=== PATIENT | male | born 1960 | race Caucasian/White ===

== ENCOUNTER 2024-06-04 01:10 | Emergency (ER) | payer BC, SELFPAY ==
[2024-06-04 01:18] VITALS: BP 144/94
[2024-06-04] MEDS: TORADOL 30 MG IM (01:46)
[2024-06-04] MEDS: FLEXERIL 10 MG PO (01:46)
--- NOTE | 2024-06-04 01:54 | ED.MUSCINJ ---
HPI-Injury
General
Chief Complaint: Musculo-Skeletal Complaint
Source: patient and family
Exam Limitations: none
Time Seen by Provider: 06/04/24 01:24
Nursing documentation reviewed up to this point in time: agreed with
History of Present Illness-Injury
Initial Injury comments:
Pleasant 64-year-old male who presents with 3 days of left knee pain. He also reported some left calf tenderness. This pain began 3 days ago without injury. Patient has a history of chronic low back pain and states that he had an exacerbation of
said pain. Denies fever, chills, nausea or vomiting. Able to ambulate.
Musculoskeletal Injury Exam
Musculoskeletal Injury Exam
Left Knee:
Pain with Movement?: Mild
Tender to palpation?: Mild
Soft tissue swelling?: Mild
External deformity and angulation?: None
Joint effusion?: None
Contusion?: None
Hematoma-local bleeding into tissue?: None
Strain- Sprain- Tear (Connective tissue injury)?: Mild
Crepitus with movement?: No
Joint instability?: No
Malalignment/deformity?: No
Range of motion: Full
Distal skin color and temperature: normal-warm & good color
Phy Exam
General Physical Exam
General Presentation: well appearing and mild distress
General age: appears stated age
General Skin: warm and dry
General Habitus: normal
Cardiovascular Exam
Cardiovascular Exam: regular rate/rhythm
Pulmonary Exam
Pulmonary Exam: lungs clear and no respiratory distress
Neurological Exam
Neurological Exam: alert and oriented x3
Musculoskeletal Exam
Musculoskeletal Exam: full ROM and back pain
Skin Exam
Skin Exam: normal color and warm/dry
Psychiatric Exam
Psychiatric Exam: normal mood/affect
Injury Course
Orders/Labs/Results
Orders:
Orders
06/04/24 01:39
Cyclobenzaprine HCl [Flexeril] 10 mg PO NOW STA
Ketorolac [Toradol] 30 mg IM NOW STA
Knee, Left 4 or More Views [CR Knee - Left 4 Or More View*] Urgent
Comment:
Reason For Exam: pain
Periph Venous Lwr Ext Left US [US Periph Venous LOWER Ext LT] Urgent
Comment:
Reason For Exam: left calf pain
06/04/24 03:14
Crutches-Treatment ONCE
Knee Immobilizer Left-Treatmen ONCE
MDM/Problems Addressed
Differential Diagnosis Includes:
Acute on chronic low back pain, arthritis of the left knee, meniscal injury, internal derangement of knee, DVT
MDM/Problems Addressed:
64-year-old male with 3 days of left knee pain, acute on chronic low back pain
Chronic conditions affecting care:
Low back pain
*Radiology
Radiology exam reviewed: all reviewed NAD by ED Provider
*Pulse Oximetry
Patient hypoxic: no
*Critical Care Note
Total Time (30-74mins, 75-104mins- exclusive of procedures): Not Applicable
Update Note
Update Note:
06/04/2024 0315 AM: X-ray and ultrasound are both normal. Patient still having pain. Will get a Percocet and follow-up with orthopedics. Knee immobilizer crutches.
ED Attending Note
-
Portions of this chart may have been created with voice recognition software.� Occasional wrong word or��sound alike� substitutions may have occurred due to the inherent limitations of voice recognition software.
Discharge Plan
Departure
Patient Disposition: Home (Routine Discharge)
Date of Disposition: 06/04/24
Time of Disposition: 03:16
Patient with high blood pressure during this ER visit?: Yes
Condition: Good
Discharge Problem:
Acute internal derangement of left knee
Instructions: How to Use Crutches, Knee Immobilizer (DC), BLOOD PRESSURE
Prescriptions:
New
oxycodone-acetaminophen [Percocet] 5-325 mg tablet
1 tab PO Q6HPRN PRN (Reason: pain) Qty: 7 0RF
No Action
hydrocodone-acetaminophen 1 TABLET tablet
1 - 2 tab PO Q4HPRN PRN (Reason: moderate to severe pain) Qty: 10 0RF
Referrals:
Angie Yuen DO [Family Provider] -
Activity Restrictions/Additional Instructions:
It was a pleasure meeting you and taking part in your care. We hope for your continued healing and wellness.
Please read discharge instructions in their entirety. However, they are for general education and may not describe your exact diagnosis at discharge. Information on your ER visit and medical conditions were discussed with you along with appropriate
follow up information...
If indicated, please take your medications as instructed and indicated on discharge paperwork.
Please schedule a follow up appointment as directed. Call to schedule an appointment
Please return to the emergency department with ANY change in, persisting, or worsening of symptoms. If any of your symptoms do not improve, or persist, or become more severe within 6-12 hours, please return to the emergency department for further
care.
Please return to the emergency department if you develop a headache, neck pain/stiffness, fever greater than 100.4F, chest pain, shortness of breath, persistent nausea, vomiting, slurred speech, difficulty walking, numbness/tingling, weakness, signs
of infection or any other symptoms that are worrisome to you.
If you have any questions or concerns please do not hesitate to call the Hospital at or E-mail me directly at [email or web address]
Interventions
Interventions:
*Risk Screen - Suicide Last Done: 06/04/24 01:18
*General Assessment Last Done: 06/04/24 01:18
*Neglect/Abuse Screening Last Done: 06/04/24 01:18
ED- Fall Risk Assessment Last Done: 06/04/24 01:18
*ED COVID-19 Vaccine History Last Done: 06/04/24 01:18
Discharge Date and Time
Print Language: CROATIAN
[2024-06-04] MEDS: PERCOCET 5/325 1 TABLET PO (03:49)
== END 2024-06-04 04:07 | disposition home or self-care (01) ==
LOC: EMR 01:10
PROVIDERS: EMERGENCY PHYSICIAN Student in an Organized Health Care Education/Training Program; FAMILY PHYSICIAN Family Medicine
DX: M23.92 Unspecified internal derangement of left knee (principal); M79.662 Pain in left lower leg; M54.50 Low back pain, unspecified; R03.0 Elevated blood-pressure reading, without diagnosis of hypertension; M17.12 Unilateral primary osteoarthritis, left knee; G89.29 Other chronic pain; E78.5 Hyperlipidemia, unspecified
CPT/HCPCS: 99284; 29505; 96372; 73564; 93971

== ENCOUNTER → 2024-06-10 10:38 | Outpatient (REF) | payer BC, SELFPAY | LOC: RAD 10:38 | PROVIDERS: ATTENDING PHYSICIAN Nurse Practitioner Family; REFERRING PHYSICIAN Physician Assistant Surgical | DX: M25.552 Pain in left hip (principal); M54.16 Radiculopathy, lumbar region | CPT/HCPCS: 72110; 73502 ==

== ENCOUNTER 2024-06-16 05:22 | Emergency (ER) | payer BC, SELFPAY ==
[2024-06-16 05:24] VITALS: BP 144/72
[2024-06-16 05:31] VITALS: BMI 20.2
[2024-06-16 06:06] VITALS: BP 173/83
--- NOTE | 2024-06-16 06:15 | ED.GENMED ---
History of Present Illness
General
Chief Complaint: Back Pain
Source: patient
Time Seen by Provider: 06/16/24 06:01
History of Present Illness
History of Present Illness:
64-year-old male presents to the emergency room complaining of pain in his left leg. Pain begins at the left hip and radiates down towards his foot. Pain is unrelenting. Patient was evaluated by orthopedics and his primary care doctor recently.
He was started on a Medrol Dosepak which has not helped. He was prescribed Percocet which has not helped. No bowel or bladder dysfunction. Patient was unable to get any sleep last night due to the pain.
Phy Exam
Physical Exam
Physical Exam:
General: Awake, Alert, Oriented X3. No acute distress.
Vitals: unremarkable
Head: Atraumatic
Eyes: Pupils equal, EOMI
Throat: Airway intact, no exudates
Neck: Trachea midline
Lungs: Clear and equal b/l
Heart: Regular rate, no murmurs
Abd: Soft, Nontender, No pulsatile mass
Back: No midline tenderness
Neuro: Nonfocal
Skin: Warm, dry, no rash
Extremities: pulses equal b/l, no edema
Course
Orders/Labs/Results
Orders:
Orders
06/16/24 06:14
Gabapentin [Neurontin] 100 mg PO NOW STA
HYDROmorphone [Dilaudid] 2 mg IM NOW STA
Vital Signs
Initial and Last Documented VS:
Initial Vital Signs
Temp Pulse Resp BP Pulse Ox
97.8 F 82 26 144/72 100
06/16/24 05:24 06/16/24 05:24 06/16/24 05:24 06/16/24 05:24 06/16/24 05:24
Last Documented Vital Signs
Temp Pulse Resp BP Pulse Ox
97.8 F 84 26 162/73 97
06/16/24 05:24 06/16/24 06:06 06/16/24 05:24 06/16/24 07:56 06/16/24 07:56
MDM/Problems Addressed
Differential Diagnosis Includes:
muscle spasm, radiculopathy, compression fx
MDM/Problems Addressed:
Patient has pain left leg rating down to the foot. No evidence of. He feels better after analgesia. He is in the midst of workup and has good follow-up scheduled tomorrow with orthopedics. Patient stable for discharge home we will start him on
gabapentin as well.
*Pulse Oximetry
Patient hypoxic: no
*Critical Care Note
Total Time (30-74mins, 75-104mins- exclusive of procedures): Not Applicable
ED Attending Note
-
Portions of this chart may have been created with voice recognition software.� Occasional wrong word or��sound alike� substitutions may have occurred due to the inherent limitations of voice recognition software.
Discharge Plan
Departure
Patient Disposition: Home (Routine Discharge)
Date of Disposition: 06/16/24
Time of Disposition: 07:37
Patient with high blood pressure during this ER visit?: Yes
Condition: Good
Discharge Problem:
Lumbar radiculopathy
Instructions: Sciatica (DC)
Prescriptions:
New
gabapentin 100 mg capsule
100 mg PO TID Qty: 60 0RF
Rx Instructions:
Take 1 pill three times/day for 3 days, then 2 pills three times/day for 3 days then 3 pills three times/day
No Action
atorvastatin 20 mg tablet
1 tab PO 1XD
Referrals:
Angie Yuen DO [Family Provider] -
Activity Restrictions/Additional Instructions:
Follow up with ortho as scheduled.
Interventions
Interventions:
*Risk Screen - Suicide Last Done: 06/16/24 05:24
*General Assessment Last Done: 06/16/24 05:31
*Neglect/Abuse Screening Last Done: 06/16/24 05:24
*Nursing Disposition Last Done: 06/16/24 07:56
ED-Musculoskeletal Assessment Last Done: 06/16/24 05:31
Discharge Date and Time
Discharge Date/Time: 06/16/24 07:56
Print Language: SWEDISH
[2024-06-16] MEDS: DILAUDID 2 MG IM (06:36)
[2024-06-16] MEDS: NEURONTIN 100 MG PO (06:38)
[2024-06-16 07:56] VITALS: BP 162/73
== END 2024-06-16 07:56 | disposition home or self-care (01) ==
LOC: EMR 05:22
PROVIDERS: EMERGENCY PHYSICIAN Emergency Medicine; FAMILY PHYSICIAN Family Medicine
DX: M54.16 Radiculopathy, lumbar region (principal); R03.0 Elevated blood-pressure reading, without diagnosis of hypertension
CPT/HCPCS: 99284; 96372

== ENCOUNTER → 2025-07-07 15:24 | Outpatient (REF) | payer BC, SELFPAY | LOC: RCS 15:24 | PROVIDERS: ATTENDING PHYSICIAN Family Medicine | DX: E11.51 Type 2 diabetes mellitus with diabetic peripheral angiopathy without gangrene (principal); I25.10 Atherosclerotic heart disease of native coronary artery without angina pectoris; Z72.0 Tobacco use; R07.9 Chest pain, unspecified | CPT/HCPCS: 93005 ==

== ENCOUNTER → 2025-09-05 07:05 | Outpatient (REF) | payer BC, SELFPAY | LOC: RCS 07:05 | PROVIDERS: ATTENDING PHYSICIAN Internal Medicine Cardiovascular Disease; FAMILY PHYSICIAN Internal Medicine | DX: R94.31 Abnormal electrocardiogram [ECG] [EKG] (principal) | CPT/HCPCS: 93306 ==

== ENCOUNTER 2025-09-06 13:28 | Inpatient (IN) | payer BC, SELFPAY ==
[2025-09-06] VITALS (10 sets, daily range): BP systolic 51–214; BP diastolic 17–163; BMI 22.5
[2025-09-06] MEDS: LOW STRENGTH ASPIRIN 324 MG PO (08:39)
[2025-09-06] MEDS: NSS 207 ML IV (08:40)
[2025-09-06 08:41] LABS: Hematocrit 44.6 % (39.0-52.0); Hemoglobin 15.8 g/dL (13.0-18.0); Mean Corp Hgb Conc. 35.4 g/dL (33.0-37.0); Mean Corpuscular Volume 87.8 fL (80.0-94.0); Platelet Count 253 10^3/uL (130-400); Red Cell Dist. Width 12.7 % (11.5-14.5)
[2025-09-06 08:52] LABS: INR 1.01; PT 13.6 Sec (11.4-14.6)
[2025-09-06 08:53] LABS: APTT 29.8 Sec (23.4-35.0)
[2025-09-06 08:54] LABS: Glucose - Point of Care 163 mg/dl (70-99)
[2025-09-06 09:47] LABS: ALT (SGPT) 12 U/L (0-50); AST (SGOT) 16 U/L (17-59); Albumin 3.5 g/dl (3.5-5.0); Alkaline Phosphatase 58 U/L (38-126); Blood Urea Nitrogen 12 mg/dl (9-20); Calcium 8.5 mg/dl (8.4-10.2); Carbon Dioxide 26 mmol/L (22-30); Chloride 109 mmol/L (98-107); Estimated Creatinine Clearance 80 ml/min; Glucose 148 mg/dl (70-99); Potassium 4.4 mmol/L (3.5-5.1); Sodium 137 mmol/L (135-145); Total Protein 5.9 g/dl (6.3-8.2); eGFR > 60.00
--- NOTE | 2025-09-06 09:49 | ITS.CL.CATH ---
[facility] - Catheterization
Cardiac Catheterization
Procedure Report:
LEFT HEART CATHETERIZATION
Date of Procedure: September 06, 2025
Referring: Dr. Blaze Mckenzie
PROCEDURES:
1. Left heart catheterization with coronary and single-plane left ventriculography
INDICATION: This is a 65-year-old gentleman with a past medical history notable for [id number] diabetes, tobacco abuse, and hyperlipidemia. He presented to our office with a 2 to 4-month history of exertional chest tightness. His
symptoms are occurring at reasonably low levels of exertion such as when trying to load a boat on top of a car or when walking to the bottom of his driveway and pulling trash cans back to the house. He denies any resting symptoms. He is now
referred for coronary angiography
ACCESS: Right radial artery, 6 Georgian sheath
HEMODYNAMICS : (mmHg)
AO (s/d) : 138/64, 93
LV (s/d) : 150/8
LVEDP : 22
CORONARY FINDINGS
DOMINANCE: Right
LEFT MAIN: 95% ostial left main stenosis
LEFT ANTERIOR DESCENDING: The LAD arises normally from the left main and runs in the anterior interventricular groove. There is a 40% ostial LAD stenosis. The remainder of the vessel has diffuse but noncritical luminal irregularities.
CIRCUMFLEX: The circumflex is a medium caliber nondominant vessel. OM1 arises proximally from the circumflex and bifurcates into 2 daughter branches. The more medial daughter branch has a 90% stenosis just beyond the bifurcation. The AV
circumflex has 70 and 90% stenosis in the mid vessel beyond OM1
RIGHT CORONARY ARTERY: The right coronary artery is a dominant vessel that is 100% occluded in its midportion with the distal vessel filling via well-developed right to right and [id number] collaterals.
VENTRICULOGRAPHY: Left ventriculography is performed in an HERNANDEZ projection. The digital single-plane left ventricular ejection fraction is estimated at 45-50% with anteroapical hypokinesis and mild inferior hypokinesis
SEDATION: 32 minutes of procedural sedation was utilized. An independent senior medical writer was present to assist with and help manage the patient's level of consciousness and physiologic status.
RADIATION SUMMARY: Fluoro Time (min): 2.6, Dose (mGy): 230.3, DAP (Gy.cm2) : 16.7
Closure Device: TR band
CONCLUSIONS
1. High-grade ostial left main stenosis and chronically occluded mid RCA
2. Low normal to mildly reduced LVEF estimated 45-50%
RECOMMENDATIONS
1. Will consult CT surgery and discuss inpatient versus outpatient surgical evaluation given ostial left main stenosis. Could consider PCI if he is not deemed to be a reasonable surgical candidate
Copy to: Dr. Blaze Mckenzie
[2025-09-06 10:14] LABS: Glucose - Point of Care 141 mg/dl (70-99)
--- NOTE | 2025-09-06 10:31 | PTCARENOTE ---
Pt was moved to cath lab technologist 1 while bag /mask ventilated and with ongoing chest compressions. Paul Guadarrama and Temitope with pt
[2025-09-06 11:18] LABS: B.E. - POC -10.9 mmol/L; Blood Urea Nitrogen - POC 10 mg/dl (3-120); Chloride - POC 106 mmol/L (96-111); Creatinine - POC 1.09 mg/dl (0.3-1.0); Glucose - POC 278 mg/dl (70-99); HCO3 - POC 20 mmol/L (21-28); Hematocrit - POC 25 % PCV (42-52); Hemodilution- POC No; Hemoglobin Calculated - POC 8.5; Ionized Calcium - POC 1.26 mmol/L (1.15-1.33); Lactate - POC 12.25 mmol/L (0.36-0.75); O2 Saturation %Calculated-POC 32.6 % (94-98); PCO2 - POC 83 mmHg (35-48); PO2 - POC 31 mmHg (83-108); Potassium - POC 3.0 mmol/L (3.5-5.1); Sodium - POC 143 mmol/L (136-145); Specimen Type - POC Venous; pH - POC 7.00 (7.35-7.45)
[2025-09-06 11:28] LABS: INR 1.87; PT 21.7 Sec (11.4-14.6)
[2025-09-06 11:30] LABS: B.E. - POC -14.0 mmol/L; Blood Urea Nitrogen - POC 10 mg/dl (3-120); Chloride - POC 109 mmol/L (96-111); Creatinine - POC 1.13 mg/dl (0.3-1.0); Glucose - POC 233 mg/dl (70-99); HCO3 - POC 17 mmol/L (21-28); Hematocrit - POC 27 % PCV (42-52); Hemodilution- POC Yes; Hemoglobin Calculated - POC 9.3; Ionized Calcium - POC 1.18 mmol/L (1.15-1.33); Lactate - POC 11.74 mmol/L (0.36-0.75); O2 Saturation %Calculated-POC 99.9 % (94-98); PCO2 - POC 63 mmHg (35-48); PO2 - POC 436 mmHg (83-108); Potassium - POC 2.7 mmol/L (3.5-5.1); Sodium - POC 149 mmol/L (136-145); Specimen Type - POC Arterial; pH - POC 7.03 (7.35-7.45)
[2025-09-06 11:33] LABS: ALT (SGPT) 40 U/L (0-50); AST (SGOT) 49 U/L (17-59); Albumin 1.7 g/dl (3.5-5.0); Alkaline Phosphatase 29 U/L (38-126); Blood Urea Nitrogen 11 mg/dl (9-20); Calcium 8.1 mg/dl (8.4-10.2); Carbon Dioxide 21 mmol/L (22-30); Chloride 108 mmol/L (98-107); Estimated Creatinine Clearance 72 ml/min; Glucose 251 mg/dl (70-99); Potassium 3.2 mmol/L (3.5-5.1); Sodium 139 mmol/L (135-145); Total Protein 3.3 g/dl (6.3-8.2); eGFR > 60.00
[2025-09-06 11:41] LABS: ACT-LR - POC > 397 Seconds (116-155)
[2025-09-06 11:42] LABS: Troponin I 0.022 ng/ml
[2025-09-06 11:47] LABS: ACT-LR - POC 314 Seconds (116-155)
[2025-09-06 11:50] LABS: APTT > 200 Sec (23.4-35.0)
[2025-09-06 11:51] LABS: Hematocrit 30.3 % (39.0-52.0); Hemoglobin 10.2 g/dL (13.0-18.0); Mean Corp Hgb Conc. 33.7 g/dL (33.0-37.0); Mean Corpuscular Volume 95.3 fL (80.0-94.0); Nucleated Red Blood Cells % 0 % (-); Platelet Count 82 10^3/uL (130-400); Red Cell Dist. Width 12.6 % (11.5-14.5)
[2025-09-06 11:51] LABS: B.E. - POC -4.1 mmol/L; Blood Urea Nitrogen - POC 11 mg/dl (3-120); Chloride - POC 107 mmol/L (96-111); Creatinine - POC 1.15 mg/dl (0.3-1.0); Glucose - POC 211 mg/dl (70-99); HCO3 - POC 24 mmol/L (21-28); Hematocrit - POC 28 % PCV (42-52); Hemodilution- POC No; Hemoglobin Calculated - POC 9.4; Ionized Calcium - POC 1.54 mmol/L (1.15-1.33); Lactate - POC 11.42 mmol/L (0.36-0.75); O2 Saturation %Calculated-POC 100.0 % (94-98); PCO2 - POC 55 mmHg (35-48); PO2 - POC 446 mmHg (83-108); Potassium - POC 3.4 mmol/L (3.5-5.1); Sodium - POC 148 mmol/L (136-145); Specimen Type - POC Arterial; pH - POC 7.24 (7.35-7.45)
[2025-09-06 12:06] LABS: ACT-LR - POC 316 Seconds (116-155)
[2025-09-06 12:14] LABS: B.E. - POC -4.5 mmol/L; Blood Urea Nitrogen - POC 10 mg/dl (3-120); Chloride - POC 111 mmol/L (96-111); Creatinine - POC 1.05 mg/dl (0.3-1.0); Glucose - POC 246 mg/dl (70-99); HCO3 - POC 20 mmol/L (21-28); Hematocrit - POC 33 % PCV (42-52); Hemodilution- POC No; Hemoglobin Calculated - POC 11.4; Ionized Calcium - POC 1.39 mmol/L (1.15-1.33); Lactate - POC 10.40 mmol/L (0.36-0.75); O2 Saturation %Calculated-POC 99.5 % (94-98); PCO2 - POC 34 mmHg (35-48); PO2 - POC 171 mmHg (83-108); Potassium - POC 3.5 mmol/L (3.5-5.1); Sodium - POC 146 mmol/L (136-145); Specimen Type - POC Arterial; pH - POC 7.38 (7.35-7.45)
--- NOTE | 2025-09-06 12:29 | PTCARENOTE ---
Patient arrived to [facility] awake, alert, and oriented at 0944. Patient was connected to monitor and I performed my initial assessment. Patient had no complaints of pain. Patient asked for a hot cup of coffee and an Indonesian muffin. First
Blood pressure cycled and showed 84/68. At that moment the patient was sitting up and speaking with me. I cycled the pressure a second time to confirm. Second pressure showed 51/36. Called a second nurse to help come trouble shot. Patient then
stated that he felt 'woozy' and was having chest pain. MRI TECH Bessy Grullon summoned to bedside, at which point patient became non responsive. As MRI TECH was summoned, patient placed in Trendelenburg and IV fluids were opened wide. Unable to obtain blood
pressure and and pulses. Atropine and compressions started at [address] Guadarrama summoned to bedside. Refer to code sheet.
--- NOTE | 2025-09-06 12:40 | HPS.HSE ---
Family Physician
-
Family Physician: Angie Yuen
Chief Complaint
-
Excertional Angina
History of Present Illness
65 y/o with PMHx of DM, COPD, HTN presented to [facility] with complaints of excertional chest pain. He electively presented to [facility] for a LHC. He underwent a LHC preformed by Dr. Guadarrama which showed LM disease and returned to laborer operator recovery. While in
recovery, patient became bradycardic and suffered a cardiac arrested. CPR was immediately iniated and the CT surgery team was called for ECPR. Patient appeared to have PAD and arterial access was obtained in the laborer operator. During the code patient
recieved CPR, epi, amio bolus x2 and 2 defibs for VF. Patient was given 10K units of heparin and placed on circuit at 1055. He was cannulated by Dr. Adams and Dr. Guadarrama with a 25fr Venous Cannula and a 15fr Arterial. A DPC was placed in the lab.
Initally, flows were 3.0 but MAPs were 40s. He was given an additional 1g of calcium chloride and 3amps of sodium bicarb. He was then started on a levophed and epi infusion. Hemoglobin was noted to 8.5 via POC testing and he was given 2 uprbcs. Once
patient's acidosis was corrected, levophed was weaned off. Patient returns to the CVICU for management until bed is available at [facility].
Medical History
Past Medical History
Past Medical History: Reports CAD, COPD, HTN, Hypercholesterolemia and NIDDM
Past Surgical History: Reports None
Social History
Unable to obtain full social history at this time due to: Patient Intubation
Family History
Family History: Unable to Obtain
Allergies / Home Medications
Allergies reflects when Allergies were last updated in [facility].
Home Medications with original date entered in [facility]
Allergy/Medication List:
NKDA
Home Medications
�Medication �Instructions �Recorded
amlodipine 2.5 mg tablet 2.5 mg PO DAILY 09/06/25
atorvastatin 20 mg tablet 20 mg PO DAILY 09/06/25
metoprolol succinate 25 mg 25 mg PO DAILY 09/06/25
tablet,extended release 24 hr
tadalafil 20 mg tablet (Cialis) 20 mg PO DAILY PRN ED 09/06/25
If medication reconciliation has not been performed, why?: Unresponsive
Review of Systems
-
Unable to obtain full review of systems at this time due to: Patient Intubation
Physical Exam
Vital Signs
Vital Signs
Temp Pulse Resp BP Pulse Ox
98.4 F 133 19 202/80 97
09/06/25 08:10 09/06/25 10:30 09/06/25 10:30 09/06/25 10:30 09/06/25 09:44
Physical Exam
General: Well Developed
HEENT: NormoCephalic and Moist mucous membranes
Respiratory: Other (Ventilator assited)
Cardiac: S1/S2
Breast: N/A
GI: Soft and Non Tender
Rectal: Deferred by Provider
Genito-urinary: Clear Urine
Musculoskeletal: No Clubbing
Skin: Warm and Dry
Neuro: AO x 3
Hematologic/Lymphatic: No Lymphadenopathy
Psych: Calm
Laboratory Results
-
09/06/25 11:00
09/06/25 11:00
Laboratory Results
PT 21.7 Sec (11.4-14.6) H 09/06/25 11:00
INR 1.87 09/06/25 11:00
APTT > 200 Sec (23.4-35.0) H* 09/06/25 11:00
Total Bilirubin 0.4 mg/dl (0.2-1.3) 09/06/25 11:00
AST 49 U/L (17-59) 09/06/25 11:00
ALT 40 U/L (0-50) 09/06/25 11:00
Alkaline Phosphatase 29 U/L (38-126) L 09/06/25 11:00
Troponin I 0.022 ng/ml 09/06/25 11:00
Data Reviewed
-
Critical Care Time (in minutes): 120
Impression/Plan
-
IMPRESSION:
65 y/o male with PMHX listed above presented to [facility] for a elective cath. post procedure suffered a cardiac arrest and placed on peripheral VA ECMO.
PLAN:
Neuro:
-Currently sedated on Fentanyl and Versed
Cardiovascular:
#Cardiogenic Shock
#Coronary Artery disease
#VA ECMO
- Cont Q1h ABGs
- Cont Epi and levo for MAPs>65
- SGC in place
- Currently with flows 3-3.5 and sweep 8
- 25fr venous cannula and 15fr arterial and DPC in left femoral
- check all ABGs from Right radial Arterial line
#Ventricular fibrillation
- s/p 3 amio boluses and now on amio infusion
- maintain K >4 and Mg >2.0
Pulmonary:
#VDRF
- stat CXR
- maintain current vent settings
- 8.0 ETT 23@ lip
Renal:
#Metabolic Acidosis
#CHRIS
- Insert castillo
- strict I&os
- trend lactate q6h
GI:
#shock liver
- Cont IV protonix
- NPO
- hold statins/tylenol
Heme:
- trend ACT
>>Once <200 start systemic heparin
-s/p 2uPRBCS
- maintain active Type and screen
[2025-09-06 12:54] LABS: ACT-LR - POC 269 Seconds (116-155)
[2025-09-06 13:14] LABS: Hepatitis B Surface Antigen Negative (Negative)
--- NOTE | 2025-09-06 13:28 | PTCARENOTE ---
received pt from [facility] into 2259, sinus rhythm on tele w + ectopy, + doppler peripheral pulses, right radial kelly leveled and zeroed, right femoral sheath and CVC in place, left femoral sheath w ECMO access, #8 ETT, VENT SETTINGS: 24/50/+5/100%, POX
93%. CT surgery and cardiology and perfusion at bedside.
DRIPS: amiodarone 1
epi 5, weaned to 3
[2025-09-06 13:31] LABS: Hepatitis C Antibody Negative (Negative)
[2025-09-06 13:39] LABS: ACT-LR - POC 237 Seconds (116-155)
[2025-09-06 13:43] LABS: B.E. - POC -3.6 mmol/L; Blood Urea Nitrogen - POC 12 mg/dl (3-120); Chloride - POC 111 mmol/L (96-111); Creatinine - POC 1.08 mg/dl (0.3-1.0); Glucose - POC 274 mg/dl (70-99); HCO3 - POC 21 mmol/L (21-28); Hematocrit - POC 38 % PCV (42-52); Hemodilution- POC No; Hemoglobin Calculated - POC 12.8; Ionized Calcium - POC 1.21 mmol/L (1.15-1.33); Lactate - POC 9.43 mmol/L (0.36-0.75); O2 Saturation %Calculated-POC 88.4 % (94-98); PCO2 - POC 38 mmHg (35-48); PO2 - POC 57 mmHg (83-108); Potassium - POC 3.3 mmol/L (3.5-5.1); Sodium - POC 147 mmol/L (136-145); Specimen Type - POC Arterial; pH - POC 7.36 (7.35-7.45)
[2025-09-06] MEDS: SUBLIMAZE 100 IV (13:52)
[2025-09-06] MEDS: KCL 100 IV (13:53)
[2025-09-06] MEDS: SUBLIMAZE 70 MCG IV (13:57)
[2025-09-06] MEDS: NSS (PRESERVATIVE FREE) 10 ML IV (13:57)
[2025-09-06] MEDS: PROTONIX IV 40 MG IV (13:57)
[2025-09-06] MEDS: CORDARONE 103 MG IV (13:58)
[2025-09-06] MEDS: HEPARIN 25000 UNITS/250 ML IV (14:17)
[2025-09-06 14:18] LABS: B.E. - POC -2.5 mmol/L; Blood Urea Nitrogen - POC 14 mg/dl (3-120); Chloride - POC 110 mmol/L (96-111); Creatinine - POC 1.01 mg/dl (0.3-1.0); Glucose - POC 314 mg/dl (70-99); HCO3 - POC 21 mmol/L (21-28); Hematocrit - POC 40 % PCV (42-52); Hemodilution- POC Yes; Hemoglobin Calculated - POC 13.6; Ionized Calcium - POC 1.29 mmol/L (1.15-1.33); Lactate - POC 7.29 mmol/L (0.36-0.75); O2 Saturation %Calculated-POC 90.5 % (94-98); PCO2 - POC 33 mmHg (35-48); PO2 - POC 58 mmHg (83-108); POC Comment ECMO; Potassium - POC 3.6 mmol/L (3.5-5.1); Sodium - POC 146 mmol/L (136-145); Specimen Type - POC Arterial; pH - POC 7.41 (7.35-7.45)
--- NOTE | 2025-09-06 14:20 | CON.INTV ---
Consultation
Consultation Request
Date/Time Consultation Requested: 09/06/2025 - 1007
Date/Time Consultation Performed: 09/06/2025 - 1031
Requesting Provider: NOE Ken
Performing Provider: Dr. Sage
Reason for Consultation: s/p ECMO
Medical History
-
Chief Complaint: Exertional chest pain
History of Present Illness:
65-year-old male tobacco smoker with a past medical history of COPD, hypertension, hyperlipidemia, DMT2 and history of inguinal hernia SP repair with mesh (June 2019) who presented with exertional chest pain. Patient follows with Dr. Mckenzie
for cardiology with last visit 08/16/2025. Diagnosed with unstable angina with progressively worsening symptoms as of late. Aspirin and atorvastatin were recommended as well as metoprolol and amlodipine. After coming into the hospital on
09/05/2025, he underwent an echocardiogram showing preserved LVEF and 50-55% with no regional WMA, no aortic stenosis, mild MR and no TR. Left heart catheterization was then performed today on 09/06/2025 showing high-grade ostial left main stenosis
and chronically occluded mid RCA, with low�normal to mildly reduced LVEF estimated at 45 to 50%. While in recovery, patient became bradycardic and suffered a cardiac arrest with CPR initiated and CT surgery team was called for the CPR. Patient was
noted to have PAD and ECMO could not be cannulated at bedside. He was given multiple pushes of epinephrine + bicarbonate as well as defibrillation x 2 for VF. He was finally placed onto circuit at 10:55 AM and given 10,000 units of heparin. He
was then transferred to the CVICU while awaiting transfer to [place]. Gaming Table Operator consult placed for additional management/recommendations.
When I saw the patient, heart rate was 111, BP 110/93 via right radial A-line, BP 111/90 via right femoral A-line, PAP 27/20, SpO2 100% and CO/CI: 1.66/0.91. Currently sedated on fentanyl at 50 mcg/h, amiodarone 1 mg/min and heparin drip. Also on
Levophed at 3 mcg/min and epinephrine at 5 mcg/min. VA ECMO is currently running at 2.3 L/min.
PMHx: History of COPD, hypertension, hyperlipidemia, DM type II, history of frozen shoulder, inguinal hernia
PSHx: Tonsillectomy, frozen shoulder surgery, right inguinal hernia repair with mesh (07/23/2019), teeth pulled
Past Medical History
Past Medical History: Other (Above as per HPI)
Past Surgical History: Other (Above as per HPI)
Social History
Tobacco: Smoker (Smoked between ages [age] at [address] [employer], and would quit occasionally between 2 to 3 years at a time)
Alcohol: Occasional
Drug: None
Employment: Employed ([id number])
Family History
Family History: Cancer (Mother: Breast cancer, history of melanoma, & history of kidney cancer s/p nephrectomy), Diabetes (Mother) and Other (Father: Heart failure)
Allergies / Home Medications
Allergies
Allergy/AdvReac Type Severity Reaction Status Date / Time
No Known Allergies Allergy Verified 09/06/25 08:21
Home Medications
�Medication �Instructions �Recorded �Confirmed �Last Taken �Type
amlodipine 2.5 mg tablet 2.5 mg PO DAILY 09/06/25 09/06/25 Unknown History
atorvastatin 20 mg tablet 20 mg PO DAILY 09/06/25 09/06/25 09/06/25 06:00 History
metoprolol succinate 25 mg 25 mg PO DAILY 09/06/25 09/06/25 Unknown History
tablet,extended release 24 hr
tadalafil 20 mg tablet (Cialis) 20 mg PO DAILY PRN ED 09/06/25 09/06/25 Unknown History
Review of Systems
-
Unable to Obtain full review of systems at this time due to: Patient Intubation
Vitals / Labs / Diagnostic Testing
Vital Signs
Temp Pulse Resp BP Pulse Ox
95.2 F L 91 24 202/80 100
09/06/25 15:00 09/06/25 15:00 09/06/25 15:00 09/06/25 10:30 09/06/25 14:30
Lab Data
09/06/25 11:00
Laboratory Results
09/06/25 09/06/25 09/06/25
08:26 10:08 11:00
PT 13.6 Cancelled 21.7 H
INR 1.01 Cancelled 1.87
APTT 29.8 Cancelled > 200 H*
Diagnostic Testing:
Physical Exam
-
HEENT: Normocephalic, Anicteric and Other (ETT in place)
Cardiovascular: S1/S2 and Peripheral Edema (n)
Respiratory: Wheeze (n), Rhonchi (n) and Other (Mechanical breath sounds heard bilaterally)
GI: Soft, Non Distended and Non Tender
Neurology: Tremors (n) and Other (Sedated)
Skin: Warm and Dry
General: Respiratory Distress (n), Comfortable, Chills (n) and Sweats (n)
Assessment
-
Assessment: 65-year-old male tobacco smoker with a past medical history of COPD, hypertension, hyperlipidemia, DMT2 and history of inguinal hernia SP repair with mesh (June 2019) who presented with exertional chest pain. Patient follows with
Dr. Mckenzie for cardiology with last visit 08/16/2025. Diagnosed with unstable angina with progressively worsening symptoms as of late. Aspirin and atorvastatin were recommended as well as metoprolol and amlodipine. After coming into the ""hospital on 09/05/2025, he underwent an echocardiogram showing preserved LVEF and 50-55% with no regional WMA, no aortic stenosis, mild MR and no TR. Left heart catheterization was then performed today on 09/06/2025 showing high-grade ostial left
main stenosis and chronically occluded mid RCA, with low�normal to mildly reduced LVEF estimated at 45 to 50%. While in recovery, patient became bradycardic and suffered a cardiac arrest with CPR initiated and CT surgery team was called for the
CPR. Patient was noted to have PAD and ECMO could not be cannulated at bedside. He was given multiple pushes of epinephrine + bicarbonate as well as defibrillation x 2 for VF. He was finally placed onto circuit at 10:55 AM and given 10,000 units
of heparin. He was then transferred to the CVICU while awaiting transfer to [place]. Gaming Table Operator consult placed for additional management/recommendations
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
Impression:
#In-hospital cardiac arrest requiring ED CPR now on VA ECMO
#Multivessel CAD involving left main coronary artery
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
#Acute anemia
#Acute thrombocytopenia
#Reported history of COPD
Plan:
Ventilator settings reviewed
Given his cardiac arrest, would maintain SpO2 >94% (despite having a history of COPD)
Given that the PaO2 is low on right radial artery blood gas measurements, would maintain FiO2 at 100% and adjust ECMO flow rate to optimize cerebral + cardiac oxygenation to help avoid north-south syndrome
- The lung tissue on CXR does not show severe pulmonary edema, hence I believe we could likely increase [place] cardiac circulation to help coronary and cerebral oxygenation; may need a temporary MCS device for LV venting
- I doubt that severe RV failure is because of low PaO2 given that the PA pressures are only mildly elevated at 27/20
- If adjusting vasopressors and ECMO flow rate is not optimizing PaO2, would consider adding a venous reinfusion limb into the right atrium, essentially creating venoarteriovenous ECMO
Minute ventilation will be adjusted
Arterial blood gases will be monitored (right radial to monitor cerebral/coronary oxygenation, left radial to monitor lower extremity oxygenation)
No role for SBT at this time as patient is awaiting transfer to [place] for consideration for urgent surgical revascularization
prn nebulized bronchodilators - not currently bronchospastic
Pulmonary artery catheter parameters will be followed
Pressors/antihypertensive/inotropes/diuretics will be provided as needed
Maintain MAP>65
Replete electrolytes with K>4, Mg>2
Monitor chest tube output
Monitor hemoglobin
Monitor platelet count and coags
Transfuse blood products as needed to maintain Hb>7g/dL, plt>50k (given post-operative status) - -> he did reportedly receive 2 units PRBC today after his cardiac arrest
CT surgery managing chest tubes
Ultimately, will likely need ICD for secondary prevention if he survives his subsequent hospitalization at [facility]
Continue amiodarone for now; cardiology recs appreciated
Monitor blood sugar to maintain euglycemia with goal BG 110-140
Insulin drip per protocol
Aspiration precautions
VAP prevention protocol
DVT prophylaxis
Early nutrition
Early mobilization
Patient is awaiting transfer to [facility] for continued care. Once patient is with the flight transport team, then Gaming Table Operator/Pulmonary service will sign off.
Critical care statement: A total of 41 minutes of critical care time was provided for this patient today. This includes management of ventilator, spontaneous breathing trial, arterial blood gases, pressors, of unstable vital signs, evaluation of the
patient at bedside, reviewing the patient's pertinent medical records including radiographs, microbiology, laboratory evaluations, and discussion with primary team and critical care nursing.
[2025-09-06] MEDS: VERSED 50 IV (14:30)
[2025-09-06 14:46] LABS: B.E. - POC -3.0 mmol/L; Blood Urea Nitrogen - POC 15 mg/dl (3-120); Chloride - POC 110 mmol/L (96-111); Creatinine - POC 1.10 mg/dl (0.3-1.0); Glucose - POC 344 mg/dl (70-99); HCO3 - POC 23 mmol/L (21-28); Hematocrit - POC 40 % PCV (42-52); Hemodilution- POC Yes; Hemoglobin Calculated - POC 13.6; Ionized Calcium - POC 1.33 mmol/L (1.15-1.33); Lactate - POC 6.56 mmol/L (0.36-0.75); O2 Saturation %Calculated-POC 99.9 % (94-98); PCO2 - POC 43 mmHg (35-48); PO2 - POC 378 mmHg (83-108); Potassium - POC 4.5 mmol/L (3.5-5.1); Sodium - POC 145 mmol/L (136-145); Specimen Type - POC Arterial; pH - POC 7.34 (7.35-7.45)
--- NOTE | 2025-09-06 14:49 | PTCARENOTE ---
CXR completed, BP soft, drips titrated
--- NOTE | 2025-09-06 14:49 | CM ---
Reviewed chart. Mr. Jeffrey is being transferred to [facility]. today via [facility].
[2025-09-06 14:51] LABS: B.E. - POC -1.9 mmol/L; Blood Urea Nitrogen - POC 15 mg/dl (3-120); Chloride - POC 109 mmol/L (96-111); Creatinine - POC 0.94 mg/dl (0.3-1.0); Glucose - POC 334 mg/dl (70-99); HCO3 - POC 25 mmol/L (21-28); Hematocrit - POC 41 % PCV (42-52); Hemodilution- POC Yes; Hemoglobin Calculated - POC 13.8; Ionized Calcium - POC 1.36 mmol/L (1.15-1.33); Lactate - POC 7.87 mmol/L (0.36-0.75); O2 Saturation %Calculated-POC 66.4 % (94-98); PCO2 - POC 49 mmHg (35-48); PO2 - POC 38 mmHg (83-108); Potassium - POC 4.7 mmol/L (3.5-5.1); Sodium - POC 145 mmol/L (136-145); Specimen Type - POC Mixed-Venous; pH - POC 7.31 (7.35-7.45)
--- NOTE | 2025-09-06 14:57 | W.PN.CT.SURG ---
CT Surgery Operative Note
-
CARDIAC SURGERY OPERATIVE REPORT
Preoperative Diagnosis: Coronary artery disease with unstable angina
Postoperative Diagnosis: Same
Procedure(s) Performed:
1. Left femoral venoarterial ECMO cannulation
2. Distal perfusion limb to left superficial femoral artery
Date of Surgery: 09/06/2025
Comorbidities:
1. COPD
2. DM
3. Hypertension
Attending Surgeon: Nancy Adams MD, MPH
Assistants: Gentry Guadarrama MD ; Cliff Linn MD
Anesthesiology: Edi Monterroso MD and Krystyna Rogers CRNA
Scrub and Circulating RNs: Marlena Koehler RN, Johnson Rinaldi RN
Recreation Instructor: Elly Colbert CCP
Anesthesia: GETA
Products: 2 units PRBCs
Indication(s) for Procedures: This is a 65-year-old male who presented as an outpatient for left heart cath for worsening unstable angina. His heart cath was performed without any significant complications, noted significant ostial LM disease in
addition to chronic occlusion of the mid RCA. For details of the cath please refer to procedure note. At the conclusion of the procedure the patient was taken to recovery in stable condition. Unfortunately, while in recovery he had a bradycardic
arrest witnessed by the recovery area staff. CPR was promptly started without being able to achieve ROSC after 10 minutes of good quality CPR. I was called to bedside to assess for VA ECMO candidacy. Given his age and status prior to procedure
decision was made to move forward and cannulate for bridge to revascularization.
Description of Procedure: The groins were prepped and draped in sterile fashion to access bilateral groins. A sterile ultrasound was used to identify the vessels while CPR was continuing with pauses only for stick. We were able to gain access to the
L femoral vein and placed a 6Fr sheath using Seldinger technique. Next we moved to the right groin for arterial access. On ultrasound he had significant calcification at the common femoral artery which we attempted to access proximal to this, we
accessed the vessel but could not pass a wire up so we aborted this. We then imaged the left groin again and could not easily identify the artery, attempted a stick but was ultimately in the vein which another 6 Fr sheath was placed in. Given the
difficulty with imaging and the noted vascular disease we decided to move to the tender labor which was available and cleaned in order to obtain good arterial access. CPR continued through this. In the tender labor we were able to confirm double stick of
the left femoral vein, proceeded to remove one. Again looked at bilateral arteries and could not get a wire up the right femoral artery as it appeared to be getting hung up at a branch on fluoro. We looked at the left femoral artery again and this
time were able to access the vessel at the common without significant disease. A 6 Fr sheath was placed using Seldinger technique and we confirmed both wires with fluoro with satisfactory positioning. At this point, 10,000u of Heparin were given and
we confirmed ACT > 250 after appropriate time. Given the difficulty with access and the visible calcium within the vessels, we opted for a 15 Fr arterial cannula as this could decently flow for his BSA of 1.8. We serially dilated the track then
placed our cannula without complications. We then moved to the venous cannula which was placed in similar fashion after skin jonathan and serial dilations of our skin tract. Each cannula was then connected to the ECMO lines ensuring no air within the
lines. ECMO was initiated. At this point our pH was still acidotic and patient did not have significant pulsatility, we worked to correct this with calcium, bicarb and pressors. Patient responded appropriately and MAPs improved on Epi and Levo drip
with flows of 3-3.5L. At this point I proceeded to insert a distal perfusion catheter within the L SFA using ultrasound guidance. The vessel was identified and accessed using micropuncture needle. A 6Fr sheath was placed using Seldinger technique
and this was connected to a pigtail line attached to our arterial cannula. At this point the patient was stabilized with improving ST elevations on monitor and much improved pulsatility. A TTE was quickly performed which showed EF approx 40% without
severe LV dilation and good function and decompression of the RV. CVL and swan were placed and decision made to stabilize patient for transfer to higher level of care- PCI vs CABG consideration for revascularization.
All instrument, sponge, and needle counts were confirmed to be correct x 2 at the end of the operation. The patient was transferred to the cardiac intensive care unit in critical but stable condition.
I, Dr. Nancy Adams, was present, scrubbed for, and performed all critical elements of this procedure.
Nancy Adams MD, MS
Cardiothoracic Surgeon
[facility]
This operative dictation was created using the [employer] dictation system. Please excuse any grammatical, typographical, or 'sound alike' errors
--- NOTE | 2025-09-06 15:00 | PTCARENOTE ---
family and flight team at bedside
[2025-09-06 15:07] LABS: ACT-LR - POC > 397 Seconds (116-155)
--- NOTE | 2025-09-06 15:18 | TRANSFER ---
report given to Stanley @ [facility].
--- NOTE | 2025-09-06 15:33 | ITS.CL.CATH ---
Staffing Operations Manager - Catheterization
Cardiac Catheterization
Procedure Report:
CODE 9 / CPR, ECMO CANNULATION CORONARY ANGIOGRAPHY AND RIGHT HEART CATHETERIZATION
Date of Procedure: September 06, 2025
Referring: Dr. Blaze Mckenzie
PROCEDURES:
1. CPR Code 9
2. Left common femoral arterial and left common femoral venous access using ultrasound guidance
3. ECMO cannulation
4. Right common femoral arterial and right common femoral venous access using ultrasound guidance
5. Coronary angiography: Left main / LAD
6. Right heart catheterization
CODE NOTE : Mr. Parsons underwent diagnostic coronary angiography earlier this morning. He was found to have multivessel coronary artery disease. We discussed the angiographic findings and I asked if he would like to see the films or not. He
responded that he would like to review the angiograms and we discussed the angiographic findings. He was free of any chest discomfort. He was initially interactive with nursing stating that he wanted food. Unfortunately, shortly after his arrival
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 He lost his pulse and CPR was initiated. He received multiple rounds of epinephrine with high quality ongoing CPR. Anesthesia was called and the patient was
intubated. CT surgery and perfusion were called in anticipation of this critically ill patient needing mechanical circulatory support. Vascular ultrasound was utilized and the patient was found to have extensive plaque in both common femoral
vessels. Vascular access proved difficult at bedside and ultimately the decision was made to bring the patient from the recovery area back to cardiac catheterization where fluoroscopy proved helpful with wire manipulation and placement of vascular
sheaths.
Uninterrupted CPR was continued while vascular vascular access was obtained.
We felt comfortable with arterial and venous access in the left common femoral artery and common femoral vein. The left common femoral arteriotomy site was serially dilated for ECMO cannulation and a 15 Fr. arterial cannula was placed. The left
common femoral vein was serially dilated with placement of a 25 Fr. femoral venous cannula. Please refer to Dr. Adams's procedure report for complete details of ECMO cannulation
The patient did experience some electrical instability and required IV amiodarone bolus and infusion for ventricular fibrillation and IV lidocaine.
Throughout resuscitation efforts, he received approximately 3 L of NS, 2 units of PRBC's, 12 mg of epinephrine, 4 amps of sodium bicarbonate, 750mg of amiodarone, lidocaine 100mg, 1 amp of calcium chloride, as well as norepinephrine and epinephrine
infusions.
Arterial and venous access sites were obtained in the right common femoral artery and right common femoral vein. 6 Fr. sheaths were inserted.
CORONARY FINDINGS:
Dominance: Right
LEFT MAIN: High grade ostial left main that is angiographically stable.
LEFT ANTERIOR DESCENDING: The LAD is patent and angiographically stable.
CIRCUMFLEX: 80% proximal OM1 just beyond proxmal bifurcation
RIGHT CORONARY ARTERY: Not selectively cannulated but collaterals noted to the distal RCA in left to right fashion
Attention was then turned to obtaining venous access in the right internal jugular vein. Ultrasound guidance was utilized using micropuncture technique and placement of an 8 Fr. sheath in the right IJ. A PA catheter was then advanced with
hemodynamic measures made during advancement of the catheter.
HEMODYNAMICS : mmHg
RV (s/d) : 21/6, 9
PA (s/d, m) : 24/11, 16
PCWP (m) : 14
Arterial access was then obtained in the right radial artery for arterial pressure monitoring. A 20G Jelco was advanced over guidewire. Right radial pressures were transduced.
RADIATION SUMMARY: Fluoro Time (min): 4.6, Dose (mGy): 156.9, DAP (Gy.cm2) : 14
CONCLUSIONS
1. CODE 9 with ongoing CPR and critical care time for 180 min at patients bedside
2. Coronary angiography
3. Right heart catheterization
4. Arterial access x 3 in right and left common femoral vessels and right radial artery
5. Venous access x 2 in the right common and left common femoral veins
--- NOTE | 2025-09-06 15:36 | W.DCSUMMARY ---
Discharge Summary
Discharge Data
Date of Admission: 09/06/25
Date of Discharge: 09/06/25
Total time spent discharging patient (in min): 40
-
Pending Results: No
Hospital Course
65 y/o with PMHx of DM, COPD, HTN presented to [facility] with complaints of excertional chest pain. He electively presented to [facility] for a LHC. He underwent a LHC preformed by Dr. 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 While in
recovery, patient became bradycardic and suffered a cardiac arrested. CPR was immediately iniated and the CT surgery team was called for ECPR. Patient appeared to have PAD and arterial access was obtained in the cathodic protection technician. During the code patient
recieved CPR, epi, amio bolus x2 and 2 defibs for VF. Patient was given 10K units of heparin and placed on circuit at 1055. He was cannulated by Dr. Adams and Dr. Guadarrama with a 25fr Venous Cannula and a 15fr Arterial. A DPC was placed in the lab.
Initally, flows were 3.0 but MAPs were 40s. He was given an additional 1g of calcium chloride and 3amps of sodium bicarb. He was then started on a levophed and epi infusion. Hemoglobin was noted to 8.5 via POC testing and he was given 2 uprbcs. Once
patient's acidosis was corrected, levophed was weaned off. Patient returns to the CVICU for management. While in the CVICU, patient was weaned down on epi and levophed and started on a heparin infusion. [place] came to sampler pickup patient and circuit was
exchanged with perfusion. Patient was then discharged for [facility] for the remainder of his care.
Discharge Plan
-
Patient Disposition: Acute Care Hospital
Condition: Critical
Discharge Orders:
Discharge Patient (As Directed); Ordered 09/06/25
Ordered By: Melisa Auguste
Discharge Date and Time
Print Language: GEORGIAN
[2025-09-06 16:05] LABS: B.E. - POC -2.1 mmol/L; Blood Urea Nitrogen - POC 17 mg/dl (3-120); Chloride - POC 112 mmol/L (96-111); Creatinine - POC 1.12 mg/dl (0.3-1.0); Glucose - POC 354 mg/dl (70-99); HCO3 - POC 24 mmol/L (21-28); Hematocrit - POC 36 % PCV (42-52); Hemodilution- POC Yes; Hemoglobin Calculated - POC 12.1; Ionized Calcium - POC 1.31 mmol/L (1.15-1.33); Lactate - POC 5.56 mmol/L (0.36-0.75); O2 Saturation %Calculated-POC 100.0 % (94-98); PCO2 - POC 47 mmHg (35-48); PO2 - POC 531 mmHg (83-108); Potassium - POC 4.5 mmol/L (3.5-5.1); Sodium - POC 147 mmol/L (136-145); Specimen Type - POC Arterial; pH - POC 7.32 (7.35-7.45)
[2025-09-06] MEDS: ADRENALIN 250 IV (16:20)
[2025-09-06 16:22] LABS: Iron 46 ug/dl (49-181); Magnesium 2.4 mg/dl (1.6-2.3)
[2025-09-06 16:30] LABS: Total Iron Binding Capacity 174 ug/dl (261-462)
[2025-09-06 17:02] LABS: Ferritin 187.0 ng/ml (17.9-464.0)
[2025-09-06 17:16] LABS: Vitamin B12 193 pg/ml (239-931)
[2025-09-08 06:51] LABS: B.E. - POC -12.1 mmol/L; Blood Urea Nitrogen - POC 11 mg/dl (3-120); Chloride - POC 105 mmol/L (96-111); Creatinine - POC 1.11 mg/dl (0.3-1.0); Glucose - POC 369 mg/dl (70-99); HCO3 - POC 19 mmol/L (21-28); Hematocrit - POC 38 % PCV (42-52); Hemodilution- POC No; Hemoglobin Calculated - POC 13.1; Ionized Calcium - POC 1.56 mmol/L (1.15-1.33); Lactate - POC 8.44 mmol/L (0.36-0.75); PCO2 - POC 72 mmHg (35-48); PO2 - POC < 18 mmHg (83-108); Potassium - POC 3.5 mmol/L (3.5-5.1); Sodium - POC 141 mmol/L (136-145); Specimen Type - POC Venous; pH - POC 7.04 (7.35-7.45)
== END 2025-09-06 17:00 | disposition short-term general hospital (02) | DRG 3 ==
LOC: CVICU 13:28
PROVIDERS: Anesthesiology; Clinical Nurse Specialist Acute Care; ADMITTING PHYSICIAN Student in an Organized Health Care Education/Training Program; CONSULT PHYSICIAN Internal Medicine Critical Care Medicine; CONSULT PHYSICIAN Internal Medicine Interventional Cardiology; FAMILY PHYSICIAN Family Medicine
PROC: 5A1522G Extracorporeal Oxygenation, Membrane, Peripheral Veno-arterial (ICD-10-PCS; 2025-09-06)
PROC: 4A023N7 Measurement of Cardiac Sampling and Pressure, Left Heart, Percutaneous Approach (ICD-10-PCS; 2025-09-06)
PROC: B2111ZZ Fluoroscopy of Multiple Coronary Arteries using Low Osmolar Contrast (ICD-10-PCS; 2025-09-06)
PROC: 5A12012 Performance of Cardiac Output, Single, Manual (ICD-10-PCS; 2025-09-06)
PROC: 5A1935Z Respiratory Ventilation, Less than 24 Consecutive Hours (ICD-10-PCS; 2025-09-06)
PROC: 4A023N6 Measurement of Cardiac Sampling and Pressure, Right Heart, Percutaneous Approach (ICD-10-PCS; 2025-09-06)
PROC: B2151ZZ Fluoroscopy of Left Heart using Low Osmolar Contrast (ICD-10-PCS; 2025-09-06)
PROC: 0BH17EZ Insertion of Endotracheal Airway into Trachea, Via Natural or Artificial Opening (ICD-10-PCS; 2025-09-06)
PROC: 5A2204Z Restoration of Cardiac Rhythm, Single (ICD-10-PCS; 2025-09-06)
PROC: 30233N1 Transfusion of Nonautologous Red Blood Cells into Peripheral Vein, Percutaneous Approach (ICD-10-PCS; 2025-09-06)
DX: R00.1 Bradycardia, unspecified (principal); I50.21 Acute systolic (congestive) heart failure; R57.0 Cardiogenic shock; J96.90 Respiratory failure, unspecified, unspecified whether with hypoxia or hypercapnia; K72.00 Acute and subacute hepatic failure without coma; I46.2 Cardiac arrest due to underlying cardiac condition; I25.110 Atherosclerotic heart disease of native coronary artery with unstable angina pectoris; E87.20 Acidosis, unspecified; N17.9 Acute kidney failure, unspecified; I49.01 Ventricular fibrillation; J44.9 Chronic obstructive pulmonary disease, unspecified; I11.0 Hypertensive heart disease with heart failure; E11.51 Type 2 diabetes mellitus with diabetic peripheral angiopathy without gangrene; E78.00 Pure hypercholesterolemia, unspecified; I25.82 Chronic total occlusion of coronary artery; D64.9 Anemia, unspecified; D69.6 Thrombocytopenia, unspecified; Z79.84 Long term (current) use of oral hypoglycemic drugs; Z87.891 Personal history of nicotine dependence
CPT/HCPCS: 33947; 71045; 74018; 80053; 82550; 82607; 82728; 82962; 83540; 83550; 83735; 84484; 85025; 85027; 85610; 85730; 86803; 86850; 86900; 86901; 86920; 87340; 87389; 92950; 93308; 93456; 93458; 94002; 99152; 99153; C1769; C1894; J0282; J2250; P9016; Q9967

== ENCOUNTER 2025-10-03 23:16 | Emergency (ER) | payer BC, SELFPAY ==
[2025-10-03 23:19] VITALS: BP 160/68
[2025-10-04 01:18] LABS: Urine Character Slightly Cloudy (Clear)
[2025-10-04 01:33] LABS: Urine White Cell >100 /HPF (0-5)
--- NOTE | 2025-10-04 01:45 | ED.GENMED ---
History of Present Illness
General
Chief Complaint: Catheter/Tube Problem
Time Seen by Provider: 10/03/25 23:50
History of Present Illness
History of Present Illness:
65-year-old male with recent complicated history, including cardiac arrest on 09/06. Patient presented with chest pain, had a catheterization and after procedure went into cardiac arrest, transferred to [facility] and placed on ECMO.
Patient subsequently had stent placed to the LAD with improvement of symptoms and hemodynamic stability. Patient had been discharged to short-term rehabilitation facility, however went back to [place] with abdominal pain and findings of
diverticulitis. Patient also had urinary retention, discharged 4 days ago with catheter in place. He also has a wound VAC in place in the left lower extremity, where site of ECMO. Notes that he has been doing well, however today has had minimal
drainage from his catheter with lower abdominal discomfort. Concern for obstructed Brush catheter. Denies any fever, chest pain, did breathing or additional medical complaints
Phy Exam
Physical Exam
Physical Exam:
General: Well-appearing, no clinical signs of dehydration, nontoxic and in no acute distress
HEENT: protecting airway
Neck: appears supple
CV: Normal heart rate
Resp: No accessory muscle use, no increased work of breathing
Abd: Mild distention to the suprapubic abdomen with reproducible tenderness on palpation.
Extremities: No deformities, no swelling, no erythema. Wound VAC in place to the left upper thigh without surrounding erythema or warmth.
Neuro: alert, no focal neurologic deficit
: deferred
Rectal: deferred
Psych: Normal affect
Skin: Intact
Course
Orders/Labs/Results
Orders:
Orders
10/04/25 00:55
Brush Placement- Treatment ONCE
Reason for insertion: Acute Retention
10/04/25 01:10
Urinalysis Reflex To Culture Urgent
Date Specimen was Collected: 10/04/25
Time Specimen was Collected: 01:09
Urine Microscopic Reflex Cult Urgent
Urine Culture Urgent
MAGED Source: U
Specimen Description:
Date Specimen was Collected: 10/04/25
Time Specimen was Collected: 01:09
10/04/25 01:45
Cephalexin Monohydrate [Keflex] 500 mg PO NOW STA
Abnormal Lab Results
10/04/25
01:10
Ur Occult Blood Reflex 1+ A
(Negative)
Urine Urobilinogen 2+ A
(Neg - 1+)
Leukocyte Esterase Rfl 3+ A
(Negative)
Urine RBC 3-6 A /HPF
(0-2)
Urine WBC (Reflex) >100 A /HPF
(0-5)
Urine Bacteria (Reflex) Moderate A
(Negative)
Urine Yeast Many A
(Negative)
Urine Glucose 2+ A
(Negative)
Urine Albumin (Reflex) 2+ A
(Neg - Trace)
Vital Signs
Initial and Last Documented VS:
Initial Vital Signs
Temp Pulse Resp BP Pulse Ox
97.8 F 74 22 160/68 100
10/03/25 23:19 10/03/25 23:19 10/03/25 23:19 10/03/25 23:19 10/03/25 23:19
Last Documented Vital Signs
Temp Pulse Resp BP Pulse Ox
97.8 F 74 22 160/68 100
10/03/25 23:19 10/03/25 23:19 10/03/25 23:19 10/03/25 23:19 10/03/25 23:19
MDM/Problems Addressed
MDM/Problems Addressed:
65-year-old male with recent history of catheterization presenting to the emergency department for concern of blocked Brush catheter. Vital signs on arrival significant for mild hypertension.
On exam, patient resting comfortably, no acute distress. Minimal drainage out of patient's Brush catheter bag with concern for obstruction. Bedside ultrasound does confirm urinary retention. Urine in the bag appears cloudy, some sediment, likely
causing obstruction. Concern for UTI. Patient is currently on antibiotics, however for diverticulitis with ciprofloxacin and metronidazole. Will exchange Brush catheter and send urinalysis. Patient otherwise hemodynamically stable without
concern for systemic infection or an additional acute process
01:50 - Urine does show elements of infection with RBCs, leukocytes, WBCs. Will start on cephalexin and send urine culture. At this time, feel stable for discharge. Return precautions discussed, and patient and family verbalized understanding
*Pulse Oximetry
SaO2: 100
Oxygen Mode of Delivery: Room air
Patient hypoxic: no
*Critical Care Note
Total Time (30-74mins, 75-104mins- exclusive of procedures): Not Applicable
ED Attending Note
-
Portions of this chart may have been created with voice recognition software.� Occasional wrong word or��sound alike� substitutions may have occurred due to the inherent limitations of voice recognition software.
Discharge Plan
Departure
Patient Disposition: Home (Routine Discharge)
Date of Disposition: 10/04/25
Time of Disposition: 01:45
Patient with high blood pressure during this ER visit?: Yes
Condition: Good
Discharge Problem:
Urinary tract infection, Complication, blocked Brush catheter
Instructions: How to Care for Your Brush Catheter, Male, Urinary tract infection in adults - ED (DC)
Prescriptions:
New
cephalexin 500 mg capsule
500 mg PO BID 7 Days Qty: 14 0RF
No Action
atorvastatin 20 mg Tablet
20 mg PO DAILY
amlodipine 2.5 mg Tablet
2.5 mg PO DAILY
metoprolol succinate 25 mg Tablet Extended Release 24 Hr
25 mg PO DAILY
tadalafil [Cialis] 20 mg Tablet
20 mg PO DAILY PRN (Reason: ED)
Referrals:
Angie Yuen DO [Family Provider, Family Practice]
Activity Restrictions/Additional Instructions:
You were seen in the emergency department for a blocked Brush catheter
Your catheter was exchanged for a new catheter and you were found to have a urine infection. You were started on cephalexin. Please take as prescribed
Please follow-up closely with your primary care physician.
Return to the emergency department for any worsening of your symptoms, or any development of chest pain, difficulty breathing, abdominal pain with persistent vomiting and inability to tolerate food or liquid by mouth (concern for dehydration),
weakness, headache or confusion, fever greater than 100.4, or any additional symptoms that are concerning to you.
Thank you for choosing [facility].
Interventions
Interventions:
*Risk Screen - Suicide Last Done: 10/03/25 23:19
*Neglect/Abuse Screening Last Done: 10/03/25 23:19
Discharge Date and Time
Print Language: HUNGARIAN
[2025-10-04] MEDS: KEFLEX 500 MG PO (01:58)
== END 2025-10-04 02:23 | disposition home or self-care (01) ==
LOC: EMR 23:16
PROVIDERS: EMERGENCY PHYSICIAN Student in an Organized Health Care Education/Training Program; FAMILY PHYSICIAN Family Medicine
DX: N39.0 Urinary tract infection, site not specified (principal); T83.091A Other mechanical complication of indwelling urethral catheter, initial encounter; Y73.8 Miscellaneous gastroenterology and urology devices associated with adverse incidents, not elsewhere classified; I10 Essential (primary) hypertension; Z86.74 Personal history of sudden cardiac arrest; Z95.5 Presence of coronary angioplasty implant and graft
CPT/HCPCS: 99283; 51702; 81003; 81015; 87086

== ENCOUNTER 2025-10-08 15:49 | Emergency (ER) | payer BC, SELFPAY ==
[2025-10-08 15:54] VITALS: BP 111/52
--- NOTE | 2025-10-08 16:30 | ED.GENMED ---
History of Present Illness
<Franky Storey, DO - Last Filed: 10/08/25 17:15>
General
Chief Complaint: Catheter/Tube Problem
Source: patient
Exam Limitations: none
Time Seen by Provider: 10/08/25 16:21
History of Present Illness
History of Present Illness:
See MDM
Past History
<Franky Storey, DO - Last Filed: 10/08/25 17:15>
Past History
ED Past Medical History: CAD
ED Past Surgical History: None
Social History
Tobacco: Non-smoker
Alcohol: None
Phy Exam
<Franky Storey, DO - Last Filed: 10/08/25 17:15>
Physical Exam
Physical Exam:
See MDM
Course
<Franky Storey, DO - Last Filed: 10/08/25 17:15>
Orders/Labs/Results
Orders:
Orders
10/08/25 17:04
Urinalysis Reflex To Culture Urgent
Date Specimen was Collected: 10/08/25
Time Specimen was Collected: 17:03
Urine Microscopic Reflex Cult Urgent
Urine Culture Urgent
MAGED Source: U
Specimen Description:
Date Specimen was Collected: 10/08/25
Time Specimen was Collected: 17:03
Abnormal Lab Results
10/08/25
17:04
Ur Occult Blood Reflex 2+ A
(Negative)
Leukocyte Esterase Rfl 3+ A
(Negative)
Urine RBC 11-15 A /HPF
(0-2)
Urine WBC (Reflex) >100 A /HPF
(0-5)
Urine Bacteria (Reflex) Moderate A
(Negative)
Urine Glucose 4+ A
(Negative)
Urine Albumin (Reflex) 2+ A
(Neg - Trace)
Vital Signs
Initial and Last Documented VS:
Initial Vital Signs
Temp Pulse Resp BP Pulse Ox
98.2 F 61 20 111/52 99
10/08/25 15:54 10/08/25 15:54 10/08/25 15:54 10/08/25 15:54 10/08/25 15:54
Last Documented Vital Signs
Temp Pulse Resp BP Pulse Ox
98.2 F 61 20 111/52 99
10/08/25 15:54 10/08/25 15:54 10/08/25 15:54 10/08/25 15:54 10/08/25 16:34
<Pernell Jacobo PA-C - Last Filed: 10/11/25 06:49>
Orders/Labs/Results
Orders:
Orders
10/08/25 17:04
Urinalysis Reflex To Culture Urgent
Date Specimen was Collected: 10/08/25
Time Specimen was Collected: 17:03
Urine Microscopic Reflex Cult Urgent
Urine Culture Urgent
MAGED Source: U
Specimen Description:
Date Specimen was Collected: 10/08/25
Time Specimen was Collected: 17:03
Abnormal Lab Results
10/08/25
17:04
Ur Occult Blood Reflex 2+ A
(Negative)
Leukocyte Esterase Rfl 3+ A
(Negative)
Urine RBC 11-15 A /HPF
(0-2)
Urine WBC (Reflex) >100 A /HPF
(0-5)
Urine Bacteria (Reflex) Moderate A
(Negative)
Urine Glucose 4+ A
(Negative)
Urine Albumin (Reflex) 2+ A
(Neg - Trace)
Vital Signs
Initial and Last Documented VS:
Initial Vital Signs
Temp Pulse Resp BP Pulse Ox
98.2 F 61 20 111/52 99
10/08/25 15:54 10/08/25 15:54 10/08/25 15:54 10/08/25 15:54 10/08/25 15:54
Last Documented Vital Signs
Temp Pulse Resp BP Pulse Ox
98.2 F 61 20 111/52 99
10/08/25 15:54 10/08/25 15:54 10/08/25 15:54 10/08/25 15:54 10/08/25 16:34
<Franky Storey, DO - Last Filed: 10/08/25 17:15>
MDM/Problems Addressed
Differential Diagnosis Includes:
Note:
CHIEF COMPLAINT(S)
Urinary retention.
HISTORY OF PRESENT ILLNESS
The patient is a 65-year-old male with a history of recent surgical procedures, who presented to the emergency department with complaints of urinary retention. The patient reported having a Brush catheter last placed on Friday. He mentioned that the
Brush catheter is a Coud� type, likely indicating underlying prostate issues. Patient states it has not drained for the past 6 hours or so. The inability to void is described as highly uncomfortable, prompting the visit. The patient also has a
wound vac due to previous surgical interventions and was recently discharged from a hospital after complex cardiac procedures, including ECMO (extracorporeal membrane oxygenation). Bedside bladder scan shows 406 mL in the bladder.
SOCIAL DETERMINANTS OF HEALTH
The patient has been in the hospital for an extended period and expressed a desire to return home, indicating possible hospital-related stress.
PHYSICAL EXAM
General: Alert, no acute distress.
Skin: Warm, dry. Wound VAC to left groin
Head: Normocephalic, atraumatic
Neck: Appears supple, trachea midline.
Eyes, Ears, Nose, Mouth, and Throat: Moist mucous membranes
Cardiovascular: No signs of cyanosis
Respiratory: Respirations are non-labored.
Abdomen: Non-distended
Musculoskeletal: No deformities
Neurological: No focal neurological deficit observed.
Psychiatric: Cooperative, appropriate mood and affect.
PLAN
The plan includes discussing with the nursing staff the possibility of maneuvering any clots to improve catheter function without replacement. If unsuccessful, replacement of the Brush catheter with a Coud� type will be performed.
DIFFERENTIAL DIAGNOSIS
The Differential Diagnosis includes, in no particular order and is not limited to:
- Post-surgical urinary retention
- Benign prostatic hyperplasia
- Infection-related urinary obstruction
- Urethral stricture
- Neurogenic bladder
- Medication-induced urinary retention
- Bladder stones
- Acute kidney injury
- Prostate cancer
- Urethral trauma
MEDICAL DECISION MAKING
- Chronic conditions affecting care: Recent complex cardiac procedures, urinary retention
- Data:
- Category 1: Discussion with nursing staff regarding catheter management.
- Category 2: My independent interpretation of the clinical scenario leads to suspecting prostate issues, necessitating a Coud� catheter.
- Risk:
- Consideration of Admission/Observation: Escalation of care including admission/observation was considered given the complexity and risk of the patient�s presenting complaint, exam findings, and their underlying comorbidities. However, ultimately I
feel the patient is safe for outpatient management with close follow-up. Reasoning: Work-up reassuring, does not reveal any acute life/organ-threatening processes, patients symptoms well-controlled upon reevaluation, reexamination is reassuring,
vitals are stable, patient agreeable with discharge, reliable for follow-up.
DIAGNOSIS
- Post-surgical urinary retention (R33.8)
- Benign prostatic hyperplasia with lower urinary tract symptoms (N40.1)
SUMMARY OF ENCOUNTER
The patient presented with a dysfunctional Brush catheter that was clogged. The catheter was easily replaced without difficulty. Prior records indicated a recent urine culture showing Latia albicans, but the patient does not have any symptoms
suggestive of an infection. Treatment with fluconazole may not be warranted. A urine culture will be rechecked, and the patient requested a callback with the results.
PLAN
The plan includes rechecking the urine culture to confirm the presence of Latia albicans. Treatment with antifungal medication, such as fluconazole, will be reconsidered if warranted by symptoms or additional culture results.
PATIENT EDUCATION AND COUNSELING
The patient was informed about the findings of the prior urine culture and the current lack of symptoms indicating an infection. The patient was advised that treatment with antifungal medication might not be necessary unless symptoms develop.
FOLLOW-UP INSTRUCTIONS
The patient requested a callback with the results of the urine culture.
MEDICAL DECISION MAKING
-Chronic conditions affecting care: Recent cardiac procedures, urinary retention, post-surgical status.
-Complexity of Data Reviewed:
Differential Diagnosis includes:
- Post-surgical urinary retention
- Benign prostatic hyperplasia
- Infection-related urinary obstruction
- Urethral stricture
- Neurogenic bladder
- Medication-induced urinary retention
- Bladder stones
- Acute kidney injury
- Prostate cancer
- Urethral trauma
-Data:
Category 1
Urine culture recheck planned.
Category 3
Consultation with nursing staff regarding the management of catheter dysfunction.
-Risk:
Consideration of Admission/Observation: Escalation of care including admission/observation was considered given the complexity and risk of the patients presenting complaint, exam findings, and underlying comorbidities. However, ultimately I feel the
patient is safe for outpatient management with close follow-up. Reasoning: Work-up reassuring, does not reveal any acute life-threatening processes, patients symptoms well-controlled upon reevaluation, reexamination is reassuring, vitals are stable,
patient agreeable with discharge, reliable for follow-up.
Care significantly affected by Social Determinants of Health: The patients stress related to prolonged hospitalization and desire for timely discharge.
DIAGNOSIS
- Post-surgical urinary retention (R33.8)
- Benign prostatic hyperplasia with lower urinary tract symptoms (N40.1)
<Franky Storey, DO - Last Filed: 10/08/25 17:15>
*Pulse Oximetry
SaO2: 99
Oxygen Mode of Delivery: Room air
Patient hypoxic: no
*Critical Care Note
Total Time (30-74mins, 75-104mins- exclusive of procedures): Not Applicable
<Pernell Jacobo PA-C - Last Filed: 10/11/25 06:49>
Update Note
Update Note:
10/11/2025 0649: Latia on UCx likely contaminant in setting of Brush catheter
ED Attending Note
<Franky Storey DO - Last Filed: 10/08/25 17:15>
-
Portions of this chart may have been created with voice recognition software.� Occasional wrong word or��sound alike� substitutions may have occurred due to the inherent limitations of voice recognition software.
Discharge Plan
Departure
Patient Disposition: Home (Routine Discharge)
Date of Disposition: 10/08/25
Time of Disposition: 17:15
Patient with high blood pressure during this ER visit?: No
Discharge Problem:
Obstructed Brush catheter
Prescriptions:
No Action
atorvastatin 20 mg Tablet
20 mg PO DAILY
amlodipine 2.5 mg Tablet
2.5 mg PO DAILY
metoprolol succinate 25 mg Tablet Extended Release 24 Hr
25 mg PO DAILY
tadalafil [Cialis] 20 mg Tablet
20 mg PO DAILY PRN (Reason: ED)
cephalexin 500 mg capsule
500 mg PO BID 7 Days Qty: 14 0RF
Referrals:
Angie Yuen DO [Family Provider, Family Practice]
Activity Restrictions/Additional Instructions:
Please return for any worsening symptoms.
You may return at any time if you have further concerns.
Please follow up with your doctor at the first available appointment, preferably this week.
Someone should call you in the next few days in regards to your urine culture.
Catheter related infection to Latia can frequently respond without therapy.
Thank you for choosing [facility].
Interventions
Interventions:
*Risk Screen - Suicide Last Done: 10/08/25 15:54
*General Assessment Last Done: 10/08/25 17:07
*Neglect/Abuse Screening Last Done: 10/08/25 15:54
*ED COVID-19 Vaccine History Last Done: 10/08/25 17:07
*ED Influenza Vaccine History Last Done: 10/08/25 17:07
[facility] Fall Risk Assessment Tool Last Done: 10/08/25 17:08
*Nursing Disposition Last Done: 10/08/25 17:31
MX-Yhdrit-Ritanlwqxu Assessment Last Done: 10/08/25 17:08
ED-Male Genitourinary Assessment Last Done: 10/08/25 17:08
Discharge Date and Time
Discharge Date/Time: 10/08/25 18:04
Print Language: WOLOF
[2025-10-08 17:07] VITALS: BMI 19.4
[2025-10-08 17:17] LABS: Urine Character Slightly Cloudy (Clear)
[2025-10-08 17:24] LABS: Urine Squamous Cell 0-2 /LPF (Few); Urine White Cell >100 /HPF (0-5)
== END 2025-10-08 18:04 | disposition home or self-care (01) ==
LOC: EMR 15:49
PROVIDERS: EMERGENCY PHYSICIAN Student in an Organized Health Care Education/Training Program; FAMILY PHYSICIAN Family Medicine
DX: T83.091A Other mechanical complication of indwelling urethral catheter, initial encounter (principal); Y73.8 Miscellaneous gastroenterology and urology devices associated with adverse incidents, not elsewhere classified; N40.1 Benign prostatic hyperplasia with lower urinary tract symptoms; R33.8 Other retention of urine; I25.10 Atherosclerotic heart disease of native coronary artery without angina pectoris
CPT/HCPCS: 99283; 51702; 81003; 81015; 87086